=== PATIENT | male | born 1950 | race Caucasian/White ===

== ENCOUNTER 2019-09-20 15:43 | Inpatient (IN) ==
[2019-09-20] MEDS ORDERED: 0.9 % Sodium Chloride 1,000 ML ONE (15:50)
[2019-09-20] MEDS ORDERED: *HR* Ticagrelor 90 MG TABLET ONE (15:50)
[2019-09-20] MEDS ORDERED: *HR* Heparin 5,000 UNIT/ML VIAL ONE (15:50)
[2019-09-20] MEDS ORDERED: 0.9 % Sodium Chloride 1,000 ML IVC ONE (15:51)
[2019-09-20] MEDS ORDERED: *HR* FentaNYL (PF) 100 MCG/2 ML VIAL ONE (15:51)
[2019-09-20] MEDS ORDERED: *HR* FentaNYL (PF) 100 MCG/2 ML VIAL IVP ONE (15:58)
[2019-09-20] MEDS ORDERED: *HR* Adenosine 6 MG/2 ML VIAL IVP ONE (16:02)
[2019-09-20] MEDS ORDERED: *HR* Heparin 5,000 UNIT/ML VIAL IVP PRN ×2 (16:03)
[2019-09-20] MEDS ORDERED: 0.9 % Sodium Chloride 2,000 ML ONE (16:03)
[2019-09-20] MEDS ORDERED: Heparin 1,000 UNITS/500 mL 500 ML ONE (16:03)
[2019-09-20] MEDS ORDERED: *HR* Heparin 10,000 UNIT/10 ML VIAL ONE ×2 (16:03→16:54)
[2019-09-20] MEDS ORDERED: niCARdipine 20 MG/200 ML MLS IVC ONE (16:03)
[2019-09-20] MEDS ORDERED: Nitroglycerin 1,000 MCG/10 ML VIAL IV ONE (16:03)
[2019-09-20] MEDS ORDERED: *HR* Ticagrelor 90 MG TABLET PO ONE (16:03)
[2019-09-20] MEDS ORDERED: *HR* Heparin 5,000 UNIT/ML VIAL IVP ONE (16:03)
[2019-09-20] MEDS ORDERED: ISOVUE-370 200 ML INFUS..BTL ONE (16:03)
[2019-09-20] MEDS ORDERED: Heparin 25,000 UNIT/250 ML D5W 25,000 UNIT/250 ML IV.SOLN IVC SCH (16:15)
[2019-09-20] MEDS ORDERED: *HR* Midazolam HCl 2 MG/2 ML VIAL ONE (16:23)
[2019-09-20] MEDS ORDERED: *HR* Atropine Sulfate 1 MG/10 ML SYRINGE ONE (16:28)
[2019-09-20 16:31] LABS: Basophils % 0.2 %; Eosinophils % 0.1 %; Hematocrit 38.3 % (37.5-50.1); Hemoglobin 11.9 g/dL (12.9-16.9); Immature Granulocytes % 0.4 % (0-4); Lymphocytes # 0.9 K/mcL (0.6-4.6); Lymphocytes % 5.7 %; Mean Corpuscular HGB Conc 31.1 g/dL (31.6-35.5); Mean Corpuscular Hemoglobin 26.6 pg (28.0-33.3); Mean Corpuscular Volume 85.5 fL (83.0-100.0); Mean Platelet Volume 10.7 fL (9.4-12.4); Monocytes # 1.1 K/mcL (0.0-1.3); Monocytes % 7.1 %; Neutrophils # 13.7 K/mcL (1.6-8.9); Platelet Count 266 K/mcL (140-400); Red Blood Count 4.48 M/mcL (4.19-5.50); Red Cell Distribution Width 17.9 % (11.5-14.5); Segmented Neutrophils % 86.5 %; White Blood Count 15.9 K/mcL (4.3-11.1)
[2019-09-20 16:40] LABS: BUN/Creatinine Ratio 24 (6-26); Blood Urea Nitrogen 26 mg/dL (8-23); Calcium 9.2 mg/dL (8.6-10.3); Carbon Dioxide 22 mEq/L (23-29); Chloride 103 mEq/L (98-107); Glucose 120 mg/dL (70-105); Osmolality,Calculated 286 (280-300); Potassium 3.5 mEq/L (3.5-5.1); Sodium 135 mEq/L (136-145); eGFR For African Americans > 60 (> 60); eGFR For Non-African Americans > 60 (> 60)
[2019-09-20 16:46] LABS: Troponin I 18.42 ng/mL (< 0.04)
[2019-09-20] MEDS: *HR* Ticagrelor 90 MG TABLET PO SCH (20:40)
[2019-09-21 04:43] LABS: Basophils % 0.3 %; Eosinophils % 0.1 %; Hematocrit 35.4 % (37.5-50.1); Hemoglobin 11.2 g/dL (12.9-16.9); Immature Granulocytes % 0.5 % (0-4); Lymphocytes # 0.9 K/mcL (0.6-4.6); Lymphocytes % 5.8 %; Mean Corpuscular HGB Conc 31.6 g/dL (31.6-35.5); Mean Corpuscular Volume 85.3 fL (83.0-100.0); Mean Platelet Volume 10.9 fL (9.4-12.4); Monocytes # 1.5 K/mcL (0.0-1.3); Neutrophils # 12.4 K/mcL (1.6-8.9); Platelet Count 234 K/mcL (140-400); Red Blood Count 4.15 M/mcL (4.19-5.50); Red Cell Distribution Width 17.8 % (11.5-14.5); Segmented Neutrophils % 83.3 %; White Blood Count 14.8 K/mcL (4.3-11.1)
[2019-09-21 05:14] LABS: Alanine Aminotransferase 19 Units/L (7-52); Albumin 3.7 g/dL (3.5-5.7); Albumin/Globulin Ratio 1.5 (1.1-2.2); Alkaline Phosphatase 94 Units/L (34-104); Aspartate Amino Transferase 61 Units/L (13-39); BUN/Creatinine Ratio 28 (6-26); Bilirubin,Direct 0.2 mg/dL (0.0-0.2); Bilirubin,Indirect 0.3 mg/dL (0.0-1.0); Bilirubin,Total 0.5 mg/dL (0.3-1.0); Blood Urea Nitrogen 34 mg/dL (8-23); Carbon Dioxide 22 mEq/L (23-29); Chloride 104 mEq/L (98-107); Chol/HDL Ratio 3.1 (0-4.9); Cholesterol 116 mg/dL (< 200); Globulin 2.5 g/dL (2.4-3.5); Glucose 120 mg/dL (70-105); HDL Cholesterol 38 mg/dL (40-59); LDL Cholesterol,Calculated 49 mg/dL (0-99); Magnesium 2.1 mg/dL (1.6-2.6); Osmolality,Calculated 289 (280-300); Potassium 3.3 mEq/L (3.5-5.1); Sodium 135 mEq/L (136-145); Total Protein 6.2 g/dL (6.4-8.9); Triglycerides 143 mg/dL (< 150); Troponin I 28.47 ng/mL (< 0.04); eGFR For African Americans > 60 (> 60); eGFR For Non-African Americans 59 (> 60)
[2019-09-21] MEDS: *HR* Enoxaparin 40 MG/0.4 ML SYRINGE SQ SCH (05:23)
[2019-09-21] MEDS ORDERED: Metoprolol XL (24 HR) Succ 25 MG TAB.ER.24H PO SCH (09:00)
[2019-09-21] MEDS: Aspirin 81 MG TAB.CHEW PO SCH (09:06)
[2019-09-21] MEDS: *HR* Ticagrelor 90 MG TABLET PO SCH ×2 (09:06→19:53)
[2019-09-21] MEDS ORDERED: Perflutren Lipid Microsphere 1.3 ML in 0.9 % Sodium Chloride 8.7 ML IVP ONE (09:14)
[2019-09-22 05:54] LABS: Basophils % 0.3 %; Eosinophils % 0.3 %; Hematocrit 34.7 % (37.5-50.1); Hemoglobin 10.9 g/dL (12.9-16.9); Immature Granulocytes % 0.6 % (0-4); Mean Corpuscular HGB Conc 31.4 g/dL (31.6-35.5); Mean Corpuscular Hemoglobin 26.5 pg (28.0-33.3); Mean Corpuscular Volume 84.4 fL (83.0-100.0); Mean Platelet Volume 11.1 fL (9.4-12.4); Monocytes # 1.1 K/mcL (0.0-1.3); Monocytes % 8.1 %; Neutrophils # 11.6 K/mcL (1.6-8.9); Platelet Count 247 K/mcL (140-400); Red Blood Count 4.11 M/mcL (4.19-5.50); Red Cell Distribution Width 17.8 % (11.5-14.5); Segmented Neutrophils % 83.7 %; White Blood Count 13.9 K/mcL (4.3-11.1)
[2019-09-22] MEDS: *HR* Enoxaparin 40 MG/0.4 ML SYRINGE SQ SCH (06:10)
[2019-09-22 06:15] LABS: Alanine Aminotransferase 16 Units/L (7-52); Albumin 3.7 g/dL (3.5-5.7); Albumin/Globulin Ratio 1.4 (1.1-2.2); Alkaline Phosphatase 89 Units/L (34-104); Aspartate Amino Transferase 34 Units/L (13-39); BUN/Creatinine Ratio 33 (6-26); Bilirubin,Total 0.4 mg/dL (0.3-1.0); Blood Urea Nitrogen 37 mg/dL (8-23); Calcium 8.9 mg/dL (8.6-10.3); Carbon Dioxide 21 mEq/L (23-29); Chloride 105 mEq/L (98-107); Globulin 2.7 g/dL (2.4-3.5); Glucose 120 mg/dL (70-105); Osmolality,Calculated 292 (280-300); Potassium 3.1 mEq/L (3.5-5.1); Sodium 136 mEq/L (136-145); Total Protein 6.4 g/dL (6.4-8.9); eGFR For African Americans > 60 (> 60); eGFR For Non-African Americans > 60 (> 60)
[2019-09-22 08:08] LABS: Estimated Average Glucose 128 mg/dl
[2019-09-22] MEDS: Aspirin 81 MG TAB.CHEW PO SCH (08:24)
[2019-09-22] MEDS: *HR* Ticagrelor 90 MG TABLET PO SCH (08:24)
[2019-09-22] MEDS ORDERED: lisinopriL 5 MG TABLET PO SCH (14:30)
[2019-09-22] MEDS ORDERED: Metoprolol XL (24 HR) Succ 25 MG TAB.ER.24H PO SCH (14:30)
[2019-09-22 15:57] VITALS: BP 130/53
== END 2019-09-22 16:25 | disposition home or self-care (01) | DRG 247 ==
LOC: EMEROOARM 15:43 → ICNU 16:17
PROVIDERS: ADMIT Internal Medicine Interventional Cardiology; ATTEND Internal Medicine Interventional Cardiology